=== PATIENT | male | born 1980 | race Caucasian/White ===

== ENCOUNTER 2017-02-22 05:29 | Day surgery (SDC) | payer BC ==
--- NOTE | ~2017-02-22 | EGD ---
EGD REPORT [facility] [address] [id number] NAME: PRESTON JAMES III : [birth year] STATUS : REG [facility]#: [id number] AGE: 36 ADM/REG DATE : 02/22/17 MR#: [id number] REPORT SERV DATE: 02/22/17 DICTATED BY: SCOOTER BOWERS DATE: 02/22/17 REPORT STATUS : Draft [facility] DATE: 02/22/17 Endoscopy Center Patient Name: Preston James Date of : 1980 Attending MD: SCOOTER BOWERS MD Procedure Date No Time: 02/22/2017 Procedure: Upper GI endoscopy Indications: Heartburn, Suspected esophageal reflux Referring MD: Miles Buchanan Medicines: as per anesthesia Complications: No immediate complications. Procedure: Pre-Anesthesia Assessment: - ASA Grade Assessment: II - A patient with mild systemic disease. After obtaining informed consent, the endoscope was passed under direct vision. Throughout the procedure, the patient's blood pressure, pulse, and oxygen saturations were monitored continuously. The GIF [id number] was introduced through the mouth, and advanced to the body of the stomach. The upper GI endoscopy was accomplished without difficulty. The patient tolerated the procedure. Findings: The examined esophagus was normal. A large amount of food (residue) was found in the cardia, in the gastric fundus and in the gastric body. Multiple sessile polyps were found in the gastric fundus and in the gastric body. exam stopped because of food Impression: - Normal esophagus. - A large amount of food (residue) in the stomach. - Multiple gastric polyps. Recommendation: - Follow an antireflux regimen. - Continue present medications. - Low residue diet. Procedure Code(s): --- Professional --- 05961, 52, Esophagogastroduodenoscopy, flexible, transoral; diagnostic, including collection of specimen(s) by brushing or washing, when performed (separate procedure) EGD REPORT [address] [place]. [address] NAME: PRESTON JAMES III : [birth year] STATUS : REG [facility]#: [id number] AGE: 36 ADM/REG DATE : 02/22/17 MR#: [id number] REPORT SERV DATE: 02/22/17 DICTATED BY: SCOOTER BOWERS. DATE: 02/22/17 REPORT STATUS : Draft TRANSCRIBED BY: [employer] DATE: 02/22/17 Diagnosis Code(s): --- Professional --- K31.7, Polyp of stomach and duodenum R12, Heartburn CPT copyright 2013 [employer]. All rights reserved. The codes documented in this report are preliminary and upon watch inspector final movement review may be revised to meet current compliance requirements. SCOOTER BOWERS MD 02/22/2017 7:28 AM This report has been signed electronically. Number of Addenda: 0 Note Initiated On: 02/22/2017 6:57 AM Scope Withdrawal Time 0 hours 0 minutes 0 seconds [id number] [facility] [place] [id number]
[~2017-02-22 05:29] MED LIST: PRILOSEC OTC20 MG PO
== END 2017-02-22 23:59 | disposition home or self-care (01) ==
LOC: DMU 05:29
PROVIDERS: Internal Medicine Gastroenterology
PROC: 0DJ08ZZ Inspection of Upper Intestinal Tract, Via Natural or Artificial Opening Endoscopic (ICD-10-PCS; principal; 2017-02-22 07:00)
DX: K31.7 Polyp of stomach and duodenum (principal); R12 Heartburn; J30.2 Other seasonal allergic rhinitis; K21.9 Gastro-esophageal reflux disease without esophagitis; Z98.890 Other specified postprocedural states; Z87.891 Personal history of nicotine dependence; Z79.899 Other long term (current) drug therapy